=== PATIENT | female | born 1970 | race Hispanic/Latino ===

== ENCOUNTER 2018-12-22 21:21 | Emergency (ER) | payer OTHER ==
[~2018-12-22] VITALS: Ht 160 cm; Wt 99.8 kg
[~2018-12-22 21:21] MED LIST: KEFLEX500 MG PO; LISINOPRIL-HCT1 EAC1 PO; METFORMIN HCL1000 M1 PO; NORCO 5-325 TA1 EACH PO
--- OUTSIDE RECORDS SUMMARY | 2018-12-22 21:24 | XMS ---
PreManage Notification: TYLER DESAI Security Paint Tinter Events No recent Security Events currently on file CRITERIA MET - [facility] CARE PROVIDERS VEGA GONSALVES Physician Manager Database: Medical Current PHONE: Unknown VEGA GONSALVES Primary Care Current PHONE: Unknown [facility] PHONE: [phone] Nitesh has no Care Guidelines for this patient. E.D. VISIT COUNT (12 MO.) 1 [facility] TOTAL 1 NOTE: Visits indicate total known visits. ED/UCC VISIT TRACKING (12 MO.) 12/22/2018 21:21 [facility] TYPE: Emergency COMPLAINT: - FLANK PAIN INPATIENT VISIT TRACKING (12 MO.) 03/28/2018 05:52 [facility] [place] TYPE: Medical Surgical DIAGNOSES: - Unilateral primary osteoarthritis, left knee - Presence of left artificial knee joint [email or web address]
[2018-12-22] MEDS ORDERED: NORVASC10 MG PO (21:52)
[2018-12-22] MEDS ORDERED: CEPHALEXIN500 MG PO (23:37)
== END 2018-12-23 00:02 | disposition home or self-care (01) ==
LOC: ED 21:21
DX: N39.0 Urinary tract infection, site not specified (principal); I10 Essential (primary) hypertension; E11.9 Type 2 diabetes mellitus without complications; Z79.84 Long term (current) use of oral hypoglycemic drugs; Z79.899 Other long term (current) drug therapy
CPT/HCPCS: 80053; 81001; 84703; 85025; 87077; 87088; 87186; 96374; 96375; 99284-25; J1885; J2405